=== PATIENT | female | born 1995 | race Caucasian/White ===

== ENCOUNTER 2019-01-19 12:57 | Outpatient (CLI) | payer OTHER ==
[2019-01-19] MEDS ORDERED: IRON18TA PO (14:13)
[2019-01-19] MEDS ORDERED: MULT1TAB60 PO (14:13)
[2019-01-19] MEDS ORDERED: ETON68IM3 IL (14:13)
== END 2019-01-19 23:59 | disposition home or self-care (01) ==
LOC: STAR 12:57
PROVIDERS: ATTEND Specialist
DX: Z02.9 Encounter for administrative examinations, unspecified (principal)